=== PATIENT | male | born 1960 | race Caucasian/White ===

== ENCOUNTER → 2020-08-22 09:05 | Outpatient (CLI) | payer OTHER, SELFPAY ==
--- NOTE | 2020-08-22 09:10 | EKG12_ITS ---
Test Reason : PRE OP Blood Pressure : / mmHG Vent. Rate : 093 BPM Atrial Rate : 093 BPM P-R Int : 150 ms QRS Dur : 074 ms QT Int : 336 ms P-R-T Axes : 030 071 060 degrees QTc Int : 417 ms Normal sinus rhythm Normal ECG No previous ECGs available Confirmed by KEVON EMERSON, DAYA ([id number]), editor publications SANTIAGO CAGLE ([id number]) on 08/24/2020 8:36:53 AM Referred By: Vaughn Bonds Confirmed By:DAYA LUND MD
[2020-08-22 10:20] LABS: Hematocrit 48.4 % (40-54); Hemoglobin 15.8 g/dL (13.0-16.5); Mean Corp Hgb Conc 32.6 g/dL (32-36); Mean Corpuscular Hgb 30.8 pg (27.0-32.0); Mean Corpuscular Volume 94.3 fL (80-94); Mean Platelet Vol. 8.7 fl (6.2-12.0); Platelet Count 308 K/mm3 (150-450); RBC Distribution Width CV 12.7 % (11.6-14.6); RBC Distribution Width SD 44.6 fl (35.1-43.9); Red Blood Count 5.13 M/mm3 (4.6-6.2); White Blood Count 7.5 K/mm3 (4.4-11.0)
[2020-08-22 10:48] LABS: Anion Gap 3 (5-15); BUN 19 mg/dL (7-18); Calcium,Total 9.3 mg/dL (8.5-10.1); Chloride 108 mmol/L (98-107); Creatinine, Serum 0.95 mg/dL (0.70-1.30); EST Glomerular Filtration Rate 87 mL/min (>60); Est Glom Filt Rate - Afr Amer 105 mL/min (>60); Glucose 94 mg/dL (74-106); Sodium Level 138 mmol/L (136-145)
== END ==
LOC: MTDU 09:09
PROVIDERS: Referring Provider Otolaryngology; Visit Provider Otolaryngology
DX: Z01.818 Encounter for other preprocedural examination (principal); Z11.52 Encounter for screening for COVID-19
CPT/HCPCS: 36415; 80048; 85027; 87635; 93005; C9803; U0005; U0003

== ENCOUNTER → 2020-08-27 15:22 | Outpatient (CLI) | payer OTHER, SELFPAY ==
--- NOTE | 2020-08-27 | IMM_PTH ---
PATIENT: ZAKIA AGUIAR LOC: [facility] U#:[id number] AGE/SX: 65/M ROOM: RE08/27/[address]: Dr. Vaughn Bonds MD : 1960 BED: DIS: SPEC #: [id number] RECD: 08/29/20 12:47 STATUS: DOLORES REQ #: [id number] FREDO: 08/27/20 00:[address]: Vaughn Bonds DEPT: IMMUNOHISTOCHEMISTRY RECD BY: Telma Guardado ENTERED: 08/29/20 12:48 SP TYPE: IMMUNO OTHR DR: No Primary Care Phys Tissues: Nasal septum, NOS Procedures: p16 (initial) KI-67 (add) PHYSICIAN & INSTITUTION [place] [phone] SPECIMEN INFORMATION: Tissue Source: Left septal mass Clinical Info: Left septal mass Specimen Number: [id number] CPT code: 44594, 68993 METHODOLOGY: Deparaffinized sections of prefer/formalin-fixed tissue or PAP/DQ stained slides are incubated with monoclonal/polyclonal antibodies/oligonucleotide probes. Localization is made via biotin free immunoperoxidase method. Appropriate controls are performed and reacted as expected. Results on target cell population are indicated in the following table: RESULTS: ANTIBODY / CLONE RESULT P16 (E6H4) positive, focal, patchy Ki-67 (30-9) positive, low These tests were developed and their performance characteristics determined by [facility]. They may not have been cleared or approved by the [place]. Food and Drug Administration. The FDA has determined that such clearance or approval is not necessary. The above immunohistochemical/dualISH markers are ordered and reviewed by the Pathologist. 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 AM:eran 08/30/2020
--- NOTE | 2020-08-27 | SEP_PTH ---
PATIENT: ZAKIA AGUIAR LOC: [facility] U#:[id number] AGE/SX: 65/M ROOM: RE08/27/[address]: Dr. 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 See comment. AM:eran 08/29/2020 COMMENT Results from immunohistochemistry ([id number]) for surrogate HPV marker (p16) will be reported separately. MICROSCOPIC DESCRIPTION Slides are reviewed. GROSS DESCRIPTION Received is one container labeled with the patient's name and not further designated. The specimen consists of multiple irregular fragments of tinajero soft tissue that in aggregate measure 1 x 0.6 x 0.2 cm. The specimen is totally submitted in one cassette. / SJ:eran 08/28/20 TC:1 CPT: 11265
== END ==
LOC: LAB 15:24
PROVIDERS: Referring Provider Otolaryngology; Visit Provider Otolaryngology
DX: D38.5 Neoplasm of uncertain behavior of other respiratory organs (principal)
CPT/HCPCS: 88304; 88305; 88341; 88342